=== PATIENT | female | born 1980 | race Caucasian/White ===

== ENCOUNTER 2017-09-04 06:47 | Day surgery (SDC) | payer BC ==
--- NOTE | 2017-09-03 13:49 | GHP ---
[f rep st] PREOP HISTORY AND PHYSICAL DATE OF ADMISSION: 09/04/2017 HISTORY OF PRESENT ILLNESS: Patient is a healthy, active 37-year-old female, who presented to [facility] in June 2017 with a significant right bunion deformity. She had the left one done approximately 7 years prior without complication or problems with anesthesia. She has done very well postoperatively. She wanted a similar procedure done on her opposite foot. She is an ext remely healthy, active 37-year-old female. She has no significant past medical history. She enjoys mountain biking running 4-8 miles 2-3 times per week. She has had no history of any medical problems . No family history of unusual foot or health issues. She denies ever using tobacco products. Alco hol use is less than 2 ounces per week. She has no known drug allergies. At her preop appointment, she is alert and oriented. She also related that she enjoyed skiing on [facility] and that she wants to maintain a very healthy, active lifestyle. REVIEW OF SYSTEMS: She denied any chronic or recurrent headaches, vision changes, or hearing difficu lties. She denies any cardiac arrhythmias. Denies any respiratory problems. No GI distress. No ne urologic, dermatologic, or other musculoskeletal problems. Outside of her foot hurting her, she is i n excellent health. She takes Ortho Tri-Cyclen and no other prescription medications. She does take fish oil and a multivitamin. PHYSICAL EXAMINATION: She had normal pulses 2/4 dorsal, pedal, and posterior tibial arteries. Her c apillary refill is less than 5 seconds to digits x10. No varicosities and no edema in either extremi ty. Neurologic evaluation: Sharp, dull, light touch, and proprioception all intact and symmetric to the digital level. She had a 5/5 manual muscle testing to the anterior lateral and posterior leg mu scles, as well as the intrinsic arch muscles. She has a mild splay foot deformity on the right lower extremity with medially deviated 1st metatarsal and laterally deviated hallux. She had crepitation and pain when placed in a corrected position with decreased range of motion to 40 degrees total range of motion on the right great toe joint. The left foot shows normal anatomic alignment with normal r zaria of motion. No crepitus and no pain with normal range of motion. She has a moderate arch foot t ype with a cbij-ke-eefswigl amount of midfoot pronation on weightbearing. She wears good functional shoes; they have plenty of width, and she said she wears functional shoes about 95% to 98% of the garland e. DIAGNOSIS: X-ray showed elevated intermetatarsal hallux abductus angles. She does have a slight nadeem vation on the oblique x-ray which was visualized. ASSESSMENT: Severe hallux valgus deformity, right foot, with mild elevation. PLANNED PROCEDURE: 1. Modified Horner-type bunionectomy with osteotomy screw fixation. 2. Possible Jaya osteotomy with screw fixation. At her preop appointment, we discussed risks and complications, including residual pain, delayed heal ing, and remote possibility of a recurrence of the deformity. The patient understood. Consent form was signed. She was given both oral and written postop instructions, along with a prescription for P ercocet 10/325 (#30) 1 tab p.o. q.4-6h p.r.n. pain, along with Phenergan 12.5 mg (#30) 1 tab p.o. q.4 -6h p.r.n. nausea. She was given my cell phone number for 24-hour call should she have any problems or questions, and she will be followed up x2-3 days postop at [facility]. /[id number]/MODL
--- NOTE | 2017-09-04 06:55 | PDANEPAE ---
ANE History of Present Illness 37 year old female presents for right bunionectomy. ANE Past Medical History - Cardiovascular History Hx Hypertension: No Hx Arrhythmias: No Hx Chest Pain: No Hx Coronary Artery / Peripheral Vascular Disease: No Hx CHF / Valvular Disease: No Hx Palpitations: No - Pulmonary History Hx COPD: No Hx Asthma/Reactive Airway Disease: No Hx Recent Upper Respiratory Infection: No Hx Oxygen in Use at Home: No Hx Sleep Apnea: No Sleep Apnea Screening Result - Last Documented: Negative - Neurologic History Hx Cerebrovascular Accident: No Hx Seizures: No Hx Dementia: No - Endocrine History Hx Diabetes: No Hypothyroid: No Hyperthyroid: No Obesity: no - Renal History Hx Renal Disorders: No - Liver History Hx Hepatic Disorders: No - Neurological & Psychiatric Hx Hx Neurological and Psychiatric Disorders: No - Cancer History Hx Cancer: No - Congenital Disorder History Hx Congenital Disorders: No - GI History GERD: no Hx Gastrointestinal Disorders: No - Other Health History Other Health History: none - Chronic Pain History Chronic Pain: No - Surgical History Prior Surgeries: 2 c-sections ANE Review of Systems Review of systems is: negative Review of Systems: - Exercise capacity Exercise capacity: >=4 METS METS (RN): 5 METS ANE Patient History - Allergies Allergies/Adverse Reactions: No Known Allergies Allergy (Unverified 09/24/14 18:21) - Home Medications Home medications: home medication list seen and reviewed Home Medications: Fish Oil 1,000 mg Softgel 1 tab PO BID 09/24/14 [Last Taken Unknown] Folic Acid 400 mcg PO DAILY 09/24/14 [Last Taken Unknown] 1 tab PO DAILY 09/24/14 [Last Taken Unknown] - NPO status NPO Status: no food or drink >8 hours - Anes Hx Anes Hx: no prior problems - Smoking Hx Smoking Status: Former smoker - Alcohol Use Alcohol Use: Occasionally - Family Anes Hx Family Anes Hx: neg - N/A Family Hx Anesthesia Complications: none ANE Labs/Vital Signs - Vital Signs Vital Signs: reviewed preoperatively; see RN documention for details Height: 167.64 cm Weight: 63.503 kg ANE Physical Exam - Airway Mallampati Score: Class 1 Mouth exam: normal dental/mouth exam - Pulmonary Pulmonary: no respiratory distress - Cardiovascular Cardiovascular: regular rate and rhythym - ASA Status ASA Status: I ANE Anesthesia Plan Anesthesia Plan: MAC Total IV Anesthesia: Yes
[2017-09-04] MEDS ORDERED: PROPOFOL 200 MG/20 ML VIAL ONE (07:02)
[2017-09-04] MEDS ORDERED: LR 1,000 ML IV ONE (07:02)
[2017-09-04] MEDS ORDERED: PROPOFOL/EMULSION 500 MG/50 ML BOTTLE IV ONE (07:03)
[2017-09-04] MEDS ORDERED: LIDOCAINE 1% 300 MG/30 ML SDV ONE (07:12)
[2017-09-04] MEDS ORDERED: BUPIVACAINE 0.25% 30 ML SDV ONE (07:12)
[2017-09-04] MEDS ORDERED: MIDAZOLAM 2 MG/2 ML VIAL IVP ONE (07:13)
[2017-09-04] MEDS ORDERED: ceFAZolin 1 GM/5 ML SYR ONE (07:13)
[2017-09-04] MEDS ORDERED: CEFAZOLIN 1 GM/DEXTROSE/50 ML BAG IV ONE (07:19)
[2017-09-04] MEDS ORDERED: NALOXONE HCL 0.4 MG/ML INJ IVP PRN (07:55)
[2017-09-04] MEDS ORDERED: fentaNYL 100 MCG/2 ML INJ IVP PRN (08:00)
[2017-09-04] MEDS ORDERED: ONDANSETRON 4 MG/2 ML VIAL IVP PRN (08:00)
[2017-09-04] MEDS ORDERED: HYDROCODONE/APAP 5/325 TAB PO PRN (08:00)
[2017-09-04] MEDS ORDERED: LR 500 ML IV PRN (08:00)
[2017-09-04] MEDS ORDERED: ONDANSETRON 4 MG/2 ML VIAL ONE (08:25)
--- NOTE | 2017-09-04 09:35 | POSTANESTH ---
Post Anesthetic Evaluation Cardiovascular Status: Normal, Stable, Similar to Pre-Op Cond Respiratory Status: Normal, Stable, Similar to Pre-op Cond. Level of Consciousness/Mental Status: Can Participate in Eval, Alert and Oriented Pain Control: Adequate, Prn Tx Ordered Nausea/Vomiting Control: Adequate, Prn Tx Ordered Complications Possibly Related to Anesthesia: None Noted
[2017-09-04 10:04] VITALS: BP 102/75; PULSE 61; RESP 17; TEMP 97.3; O2SAT 96
--- NOTE | 2017-09-04 10:18 | GOP ---
[f rep st] OPERATIVE REPORT DATE OF OPERATION: 09/04/2017 SURGEON: Navi Sumner DPM ANESTHESIA: IV MAC plus a local infiltration of approximately 5 cc of 1% lidocaine plain and 5 cc of 0.5% Marcaine plain. PREOPERATIVE DIAGNOSIS: Hallux valgus deformity, right lower extremity. POSTOPERATIVE DIAGNOSIS: Hallux valgus deformity, right lower extremity. PROCEDURE PERFORMED: 1. Modified Horner bunionectomy with osteotomy screw fixation. 2. Jaya osteotomy with screw fixation, right foot. FINDINGS: ESTIMATED BLOOD LOSS: Less than 5 cc. DESCRIPTION OF PROCEDURE: The patient was taken to the operating room, placed in supine position. A fter MAC and local Cartwright type block to the right lower extremity, the right lower extremity was elevat ed, prepped and draped in the usual sterile OR fashion achieving a sterile field about the entire dis avinash aspect of the extremity. After elevation and exsanguination, tourniquet was inflated to 225 mmHg . Total tourniquet time was less than 1 hour. Attention was directed to the medial aspect of the ri t great toe where approximately 3 inch linear incision was made medial to the 1st metatarsophalange al joint. Superficial vessels were clamped and bovied as necessary and care was taken to preserve th e neurovascular status to the area. The 1st intermetatarsal space was entered via sharp and blunt di ssection. The adductor tendon was identified and released sharply from its attachments into the base of the proximal phalanx. At this point, a dorsal capsular incision was made from the distal half of the proximal phalanx back to the distal 3rd of the metatarsal, along with the joint capsule was refl ected medially and laterally. A small bony prominence was noted on the medial aspect of the 1st meta tarsal, and this was removed utilizing a bone saw. A 0.035 K-wire was then placed through the metaph ysis of the metatarsal, orienting the K-wire such that it would slightly plantar flex the metatarsal. Once the osteotomy was carried out, the metatarsal head was shifted laterally. Utilizing the K-wir e as an apex for the V or chevron-type osteotomy, this osteotomy was carried out with a slightly yanick gated dorsal wing. The metatarsal head was shifted laterally and slightly plantarly, impacted upon i tself and held fast with the same 0.035 K-wire as temporary fixation. Utilizing AO technique, a sing le 2.4 mm OsteoMed screw was placed from the dorsal wing and retrograded back into the metatarsal wit h excellent compression noted. The K-wire was removed from the operative site. Redundant bone was r emoved medially. The area was rasped smooth utilizing a rotary bur and flushed copiously with dilute antibiotic solution. The great toe was then taken through a range of motion and was still pushing o n the 2nd toe. It was deemed necessary to do a secondary procedure which was the Jaya osteotomy. Attention was directed to the proximal phalanx where an oblique wedge osteotomy was carried out with the apex of the osteotomy, proximal lateral on the proximal phalanx. This wedge of bone was removed from the operative site. A fraction reduction clamp was used to close the osteotomy, again utilizing AO technique. Two parallel 2.4 mm OsteoMed screws were placed perpendicular to the osteotomy site w ith excellent compression noted. At this point, the great toe was taken through range of motion and deemed to be anatomically aligned. The clamp was removed from the operative site and there was excel lent apposition of bone at the Jaya osteotomy site. The area was flushed copiously with dilute antib iotic solution. There was some thickened joint capsule which was thinned medially on the 1st metatar maritza head. Again the area was flushed copiously with dilute antibiotic solution. The capsule was kimberly pproximated utilizing 3-0 Vicryl in a simple interrupted suture. Periosteum was reapproximated utili zing 4-0 Vicryl in a simple interrupted suture. Subcu closure was carried out via 4-0 Vicryl in a ho rizontal mattress suture and skin closure was carried out via 4-0 Prolene in a running subcuticular s titch. The incision was reinforced with Mastisol and Steri-Strips. Adaptic sterile gauze and Coban were placed over the extremity. The tourniquet was released. All digits immediately returned to uni form pink color with normal capillary flow. The patient went into recovery in a satisfactory state w ith all vital signs stable. Her prognosis is excellent for rapid recovery, and she will be followed up times 2-3 days postop at [facility]. COMPLICATIONS: There were no complications. DRAINS: No drains were placed into the operative site. /[id number]/MODL
== END 2017-09-04 10:15 | disposition home or self-care (01) ==
LOC: FSGY 06:47
PROVIDERS: ATTEND Podiatrist
PROC: 0SSM04Z Reposition Right Metatarsal-Phalangeal Joint with Internal Fixation Device, Open Approach (ICD-10-PCS; principal; 2017-09-04 07:15)
PROC: 0QSQ04Z Reposition Right Toe Phalanx with Internal Fixation Device, Open Approach (ICD-10-PCS; principal; 2017-09-04 07:15)
DX: M20.11 Hallux valgus (acquired), right foot (principal)
CPT/HCPCS: 28299; C1769; C1713; J0171; J0690; J2250; J2405; J2704